=== PATIENT | female | born 1995 | race Caucasian/White ===

== ENCOUNTER → 2017-05-01 | Outpatient (CLI) | payer BC, OTHER ==
--- NOTE | 2017-05-01 09:19 | US ---
EXAMINATION TYPE: US abdomen limited DATE OF EXAM: 05/01/2017 COMPARISON: NONE CLINICAL HISTORY: R10.10 UPPER ABD PAIN. EXAM MEASUREMENTS: Liver Length: 14.5 cm Gallbladder Wall: 0.2 cm CBD: 0.3 cm Right Kidney: 11.1 x 4.8 x 5.9 cm Pancreas: Obscured by bowel gas Liver: There is an overall homogeneous hepatic echotexture with no hepatic lesions visualized. Gallbladder: No stones seen Evidence for sonographic Torres's sign: no CBD: wnl Right Kidney: No hydronephrosis or masses seen IMPRESSION: No sonographic evidence of cholelithiasis or cholecystitis. Unremarkable abdominal ultras ound.
--- NOTE | 2017-05-01 09:38 | US ---
EXAMINATION TYPE: US pelvic complete DATE OF EXAM: 05/01/2017 COMPARISON: US 2016 CLINICAL HISTORY: R10.10 UPPER ABD PAIN. Patient stated doctor wanted to assess for as vielka ent has irregular menses, but took home test 2 weeks ago and results were negative; ; C Section; prior ovarian cyst; IUD was removed 2015 TECHNIQUE: Transabdominal (TA) Date of LMP: EXAM MEASUREMENTS: Uterus: 9.5 x 5.1 x 3.3 cm Endometrial Stripe: 0.6 cm Right Ovary: 3.3 x 2.9 x 2.1 cm Left Ovary: 2.6 x 2.5 x 1.7 cm 1. Uterus: Anteverted 2. Endometrium: unable to correlate thickness with DAY 55 LMP 3. Right Ovary: multiple small follicles 4. Left Ovary: multiple small follicles 5. Bilateral Adnexa: wnl 6. Posterior cul-de-sac: wnl IMPRESSION: No current evidence of intrauterine . Correlate with serum beta-hCG. Unremarkabl e pelvic ultrasound.
--- NOTE | 2017-05-01 11:03 | US ---
EXAMINATION TYPE: US abdomen complete DATE OF EXAM: 05/01/2017 COMPARISON: NONE CLINICAL HISTORY: upper abdomal pain. EXAM MEASUREMENTS: Liver Length: 14.5 cm Gallbladder Wall: 0.2 cm CBD: 0.3 cm Spleen: 11.8 cm Right Kidney: 11.1 x 4.8 x 5.9 cm Left Kidney: 11.8 x 4.7 x 5.2 cm The liver is homogenous. The intrahepatic portion of the IVC and proximal abdominal aorta are within normal limits. There is no evidence of cholelithiasis. Common bile duct is unremarkable. The visu alized portions of the pancreas are homogenous. The spleen is unremarkable. Kidneys are symmetric a nd free of hydronephrosis. No renal lesions are seen. IMPRESSION: Unremarkable abdominal ultrasound.
== END | disposition home or self-care (01) ==
LOC: RADUSWWP 08:12
PROVIDERS: ATTEND Family Medicine
DX: R10.13 Epigastric pain (principal); R10.10 Upper abdominal pain, unspecified
CPT/HCPCS: 76700; 76705; 76856

== ENCOUNTER → 2018-05-03 | Outpatient (CLI) | payer OTHER ==
--- NOTE | 2018-05-03 13:14 | US ---
EXAMINATION TYPE: US gallbladder DATE OF EXAM: 05/03/2018 COMPARISON: US abdomen 05/01/2017, CLINICAL HISTORY: R10.11 Right upper quadrant pain. EXAM MEASUREMENTS: Liver Length: 14.0 cm Gallbladder Wall: 0.1 cm CBD: 0.3 cm Right Kidney: 11.2 x 4.5 x 4.3 cm Pancreas: Obscured by bowel gas Liver: wnl Gallbladder: No stones seen Evidence for sonographic Torres's sign: No CBD: wnl Right Kidney: No hydronephrosis or masses seen IMPRESSION: 1. No distinct abnormality appreciated.
[2018-05-03 13:47] LABS: Albumin 4.5 g/dL (3.5-5.0); Bilirubin, Delta 0.2 mg/dL (0.0-0.2); Bilirubin,Unconjugated 0.4 mg/dL (0.0-1.1); Total Bilirubin 0.6 mg/dL (0.2-1.3); Total Protein 7.2 g/dL (6.3-8.2)
[2018-05-03 13:53] LABS: Basophils % (A) 0 %; Eosinophils % (A) 0 %; HCT 44.8 % (34.0-46.0); HGB 15.1 gm/dL (11.4-16.0); Lymphocytes % (A) 11 %; MCH 32.1 pg (25.0-35.0); MCHC 33.8 g/dL (31.0-37.0); MCV 94.9 fL (80.0-100.0); Mean Platelet Volume 7.2; Monocytes # (A) 0.3 k/uL (0-1.0); Monocytes % (A) 4 %; Neutrophils % (A) 84 %; Platelet Count 268 k/uL (150-450); RBC 4.72 m/uL (3.80-5.40); RDW 11.9 % (11.5-15.5); WBC 8.4 k/uL (3.8-10.6)
== END | disposition home or self-care (01) ==
LOC: RADUSWWP 12:11
PROVIDERS: ATTEND Family Medicine
DX: R10.11 Right upper quadrant pain (principal)
CPT/HCPCS: 36415; 76705; 80076; 82150; 83690; 85025

== ENCOUNTER → 2018-05-18 | Outpatient (CLI) | payer BC, OTHER ==
--- NOTE | 2018-05-18 15:27 | NM ---
Nuclear medicine hepatobiliary scan. HISTORY: Pain. DOSAGE: The patient received 8 ounces of ensure plus and 5.1 mCi of Technetium 99m Choletec. FINDINGS: There is normal hepatic extraction. The gallbladder is seen by 20 minutes. There is bilia ry to bowel clearance by 30 minutes. Ejection fraction is 60%. IMPRESSION: 1. Normal hepatobiliary exam
== END | disposition home or self-care (01) ==
LOC: RADNMMAIN 13:08
PROVIDERS: ATTEND Family Medicine
DX: R10.10 Upper abdominal pain, unspecified (principal)
CPT/HCPCS: 78226; A9537

== ENCOUNTER 2018-11-06 12:04 | Emergency (ER) | payer BC, OTHER ==
[2018-11-06 12:16] VITALS: RESP 18
[2018-11-06] MEDS ORDERED: SODIUM CHLORIDE 0.9% 1,000 ML IV STA (12:49)
[2018-11-06] MEDS ORDERED: ACETAMINOPHEN TAB 500 MG TAB PO STA (12:50)
--- NOTE | 2018-11-06 12:52 | ED ---
General Adult HPI - General Chief complaint: Syncope Stated complaint: Fell hit head Time Seen by Provider: 11/06/18 12:28 Source: patient, RN notes reviewed Mode of arrival: ambulatory Limitations: no limitations - History of Present Illness Initial comments: Patient is a pleasant 23-year-old female presenting to the emergency department following syncopal episode. Patient has not felt well for the past couple of days. Patient has had fatigue and myalgias. Patient has had cough and rhinorrhea. Family member was recently diagnosed with influenza. Symptoms started 2 days ago. While in the shower today patient believes she may have passed out for a second. Patient did follow-up and strike her head. No confusion. No neck or back pain. Patient does have cough with mild sensation of difficulty breathing. No abdominal pain. - Related Data Home Medications Medication Instructions Recorded Confirmed Control Pill 1 tab PO HS 07/11/15 07/13/15 Previous Rx's Medication Instructions Recorded Hydrocodone/Acetaminophen [[place] 1 each PO Q6HR PRN #30 tab 07/13/15 5-325] Allergies Allergy/AdvReac Type Severity Reaction Status Date / Time morphine AdvReac Unknown Itching Verified 11/06/18 12:11 Review of Systems ROS Statement: Those systems with pertinent positive or pertinent negative responses have been documented in the HPI. ROS Other: All systems not noted in ROS Statement are negative. Constitutional: Reports: fever, chills, weakness Eyes: Denies: eye pain ENT: Denies: ear pain Respiratory: Reports: as per HPI, cough Cardiovascular: Denies: palpitations Endocrine: Reports: fatigue Gastrointestinal: Denies: abdominal pain Genitourinary: Denies: dysuria Musculoskeletal: Denies: back pain Skin: Denies: rash Neurological: Denies: confusion Past Medical History Past Medical History: No Reported History Additional Past Medical History / Comment(s): premature History of Any Multi-Drug Resistant Organisms: None Reported Past Surgical History: No Surgical Hx Reported, Section, Orthopedic Surgery Additional Past Surgical History / Comment(s): L knee Additional Past Anesthesia/Blood Transfusion Reaction / Comment(s): no family history of problems Past Psychological History: No Psychological Hx Reported Smoking Status: Never smoker Past Alcohol Use History: None Reported Past Drug Use History: None Reported General Exam Limitations: no limitations General appearance: alert, in no apparent distress Head exam: Present: other (Posterior scalp abrasion/laceration) Eye exam: Present: normal appearance, PERRL, EOMI. Absent: nystagmus ENT exam: Present: normal oropharynx Neck exam: Present: normal inspection. Absent: tenderness, meningismus Respiratory exam: Present: normal lung sounds bilaterally. Absent: chest wall tenderness Cardiovascular Exam: Present: regular rate, normal rhythm GI/Abdominal exam: Present: soft. Absent: tenderness Extremities exam: Present: normal inspection, full ROM. Absent: tenderness, pedal edema, calf tenderness Neurological exam: Present: alert, oriented X3, CN II-XII intact. Absent: motor sensory deficit Expanded Neurological exam: Present: protecting the airway Speech: Present: fluid speech Cranial nerves: EOM's Intact: Normal Motor strength exam: RUE: 5, LUE: 5, RLE: 5, LLE: 5 Eye Response: (4) open spontaneously Motor Response: (6) obeys commands Verbal Response: (5) oriented Psychiatric exam: Present: normal affect, normal mood Skin exam: Present: normal color Course Vital Signs 11/06/18 11/06/18 11/06/18 12:11 12:33 13:46 Temperature 100.6 F H 102.2 F H 101.9 F H Pulse Rate 103 H 95 Respiratory 18 18 Rate Blood Pressure 98/63 118/73 O2 Sat by Pulse 96 98 Oximetry 11/06/18 14:20 Temperature 100.4 F H Pulse Rate Respiratory Rate Blood Pressure O2 Sat by Pulse Oximetry EKG Findings - EKG Comments: EKG Findings:: Normal sinus rhythm at 97. W[place] 154. QRS 80. QT 306. QTc 388. Normal axis. Normal QRS. No acute ST change. Medical Decision Making - Medical Decision Making Patient reevaluated. Scalp further evaluated and appears more of an abrasion than laceration. Patient is not felt to need martin. Patient and family are updated on results and need for follow-up. Onset of symptoms has been approximately 50 hours now. Tamiflu is felt to be limited benefit and patient is in agreement not to have prescription. - Lab Data Result diagrams: 11/06/18 12:52 11/06/18 12:52 Lab Results 11/06/18 11/06/18 11/06/18 Range/Units 12:52 12:52 12:52 WBC 3.6 L (3.8-10.6) k/uL RBC 4.87 (3.80-5.40) m/uL Hgb 15.3 (11.4-16.0) gm/dL Hct 46.5 H (34.0-46.0) % MCV 95.3 (80.0-100.0) fL MCH 31.5 (25.0-35.0) pg MCHC 33.0 (31.0-37.0) g/dL RDW 12.0 (11.5-15.5) % Plt Count 157 (150-450) k/uL Neutrophils % 82 % Lymphocytes % 8 % Monocytes % 7 % Eosinophils % 1 % Basophils % 1 % Neutrophils # 3.0 (1.3-7.7) k/uL Lymphocytes # 0.3 L (1.0-4.8) k/uL Monocytes # 0.3 (0-1.0) k/uL Eosinophils # 0.0 (0-0.7) k/uL Basophils # 0.0 (0-0.2) k/uL PT (9.0-12.0) sec INR (<1.2) APTT (22.0-30.0) sec D-Dimer (<0.60) mg/L FEU Sodium 139 (137-145) mmol/L Potassium 4.5 (3.5-5.1) mmol/L Chloride 106 (98-107) mmol/L Carbon Dioxide 22 (22-30) mmol/L Anion Gap 11 mmol/L BUN 9 (7-17) mg/dL Creatinine 0.89 (0.52-1.04) mg/dL Est GFR (CKD-EPI)AfAm >90 (>60 ml/min/1.73 sqM) Est GFR (CKD-EPI)NonAf >90 (>60 ml/min/1.73 sqM) Glucose 94 (74-99) mg/dL Calcium 9.3 (8.4-10.2) mg/dL Magnesium 1.7 (1.6-2.3) mg/dL Total Bilirubin 0.5 (0.2-1.3) mg/dL AST 22 (14-36) U/L ALT 32 (9-52) U/L Alkaline Phosphatase 66 (38-126) U/L Creatine Kinase 62 (30-135) U/L Troponin I <0.012 (0.000-0.034) ng/mL Total Protein 7.6 (6.3-8.2) g/dL Albumin 4.6 (3.5-5.0) g/dL Urine Color Urine Appearance (Clear) Urine pH (5.0-8.0) Ur Specific [place] (1.001-1.035) Urine Protein (Negative) Urine Glucose (UA) (Negative) Urine Ketones (Negative) Urine Blood (Negative) Urine Nitrite (Negative) Urine Bilirubin (Negative) Urine Urobilinogen (<2.0) mg/dL Ur Leukocyte Esterase (Negative) Urine HCG, Qual (Not Detectd) Influenza Type A RNA (Not Detectd) Influenza Type B (PCR) (Not Detectd) 11/06/18 11/06/18 11/06/18 Range/Units 13:08 13:55 15:05 WBC (3.8-10.6) k/uL RBC (3.80-5.40) m/uL Hgb (11.4-16.0) gm/dL Hct (34.0-46.0) % MCV (80.0-100.0) fL MCH (25.0-35.0) pg MCHC (31.0-37.0) g/dL RDW (11.5-15.5) % Plt Count (150-450) k/uL Neutrophils % % Lymphocytes % % Monocytes % % Eosinophils % % Basophils % % Neutrophils # (1.3-7.7) k/uL Lymphocytes # (1.0-4.8) k/uL Monocytes # (0-1.0) k/uL Eosinophils # (0-0.7) k/uL Basophils # (0-0.2) k/uL PT 10.8 (9.0-12.0) sec INR 1.0 (<1.2) APTT 28.4 (22.0-30.0) sec D-Dimer 0.26 (<0.60) mg/L FEU Sodium (137-145) mmol/L Potassium (3.5-5.1) mmol/L Chloride (98-107) mmol/L Carbon Dioxide (22-30) mmol/L Anion Gap mmol/L BUN (7-17) mg/dL Creatinine (0.52-1.04) mg/dL Est GFR (CKD-EPI)AfAm (>60 ml/min/1.73 sqM) Est GFR (CKD-EPI)NonAf (>60 ml/min/1.73 sqM) Glucose (74-99) mg/dL Calcium (8.4-10.2) mg/dL Magnesium (1.6-2.3) mg/dL Total Bilirubin (0.2-1.3) mg/dL AST (14-36) U/L ALT (9-52) U/L Alkaline Phosphatase (38-126) U/L Creatine Kinase (30-135) U/L Troponin I (0.000-0.034) ng/mL Total Protein (6.3-8.2) g/dL Albumin (3.5-5.0) g/dL Urine Color Urine Appearance (Clear) Urine pH (5.0-8.0) Ur Specific [place] (1.001-1.035) Urine Protein (Negative) Urine Glucose (UA) (Negative) Urine Ketones (Negative) Urine Blood (Negative) Urine Nitrite (Negative) Urine Bilirubin (Negative) Urine Urobilinogen (<2.0) mg/dL Ur Leukocyte Esterase (Negative) Urine HCG, Qual Not Detected (Not Detectd) Influenza Type A RNA Detected H (Not Detectd) Influenza Type B (PCR) Not Detected (Not Detectd) 11/06/18 Range/Units 15:05 WBC (3.8-10.6) k/uL RBC (3.80-5.40) m/uL Hgb (11.4-16.0) gm/dL Hct (34.0-46.0) % MCV (80.0-100.0) fL MCH (25.0-35.0) pg MCHC (31.0-37.0) g/dL RDW (11.5-15.5) % Plt Count (150-450) k/uL Neutrophils % % Lymphocytes % % Monocytes % % Eosinophils % % Basophils % % Neutrophils # (1.3-7.7) k/uL Lymphocytes # (1.0-4.8) k/uL Monocytes # (0-1.0) k/uL Eosinophils # (0-0.7) k/uL Basophils # (0-0.2) k/uL PT (9.0-12.0) sec INR (<1.2) APTT (22.0-30.0) sec D-Dimer (<0.60) mg/L FEU Sodium (137-145) mmol/L Potassium (3.5-5.1) mmol/L Chloride (98-107) mmol/L Carbon Dioxide (22-30) mmol/L Anion Gap mmol/L BUN (7-17) mg/dL Creatinine (0.52-1.04) mg/dL Est GFR (CKD-EPI)AfAm (>60 ml/min/1.73 sqM) Est GFR (CKD-EPI)NonAf (>60 ml/min/1.73 sqM) Glucose (74-99) mg/dL Calcium (8.4-10.2) mg/dL Magnesium (1.6-2.3) mg/dL Total Bilirubin (0.2-1.3) mg/dL AST (14-36) U/L ALT (9-52) U/L Alkaline Phosphatase (38-126) U/L Creatine Kinase (30-135) U/L Troponin I (0.000-0.034) ng/mL Total Protein (6.3-8.2) g/dL Albumin (3.5-5.0) g/dL Urine Color Yellow Urine Appearance Clear (Clear) Urine pH 6.5 (5.0-8.0) Ur Specific [place] 1.007 (1.001-1.035) Urine Protein Negative (Negative) Urine Glucose (UA) Negative (Negative) Urine Ketones Trace H (Negative) Urine Blood Negative (Negative) Urine Nitrite Negative (Negative) Urine Bilirubin Negative (Negative) Urine Urobilinogen <2.0 (<2.0) mg/dL Ur Leukocyte Esterase Negative (Negative) Urine HCG, Qual (Not Detectd) Influenza Type A RNA (Not Detectd) Influenza Type B (PCR) (Not Detectd) - Radiology Data Radiology results: report reviewed (Computed tomography scan of the brain does not reveal acute abnormality), image reviewed (Chest x-ray shows no acute process) Disposition Clinical Impression: Influenza, Syncope Disposition: HOME SELF-CARE Condition: Stable Instructions (If sedation given, give patient instructions): Syncope (ED), Influenza (ED) Additional Instructions: Please follow-up with primary care physician in the next couple days for recheck. Return for passing out, chest pain, difficulty breathing, worsening or changing symptoms or other concerns. Is patient prescribed a controlled substance at d/c from ED?: No Referrals: Yevgeniy Mohamud Jr, DO [Primary Care Provider] - 1-2 days Time of Disposition: 15:24
[2018-11-06 13:16] LABS: Basophils % (A) 1 %; Eosinophils % (A) 1 %; HCT 46.5 % (34.0-46.0); HGB 15.3 gm/dL (11.4-16.0); Lymphocytes # (A) 0.3 k/uL (1.0-4.8); Lymphocytes % (A) 8 %; MCH 31.5 pg (25.0-35.0); MCV 95.3 fL (80.0-100.0); Mean Platelet Volume 7.1; Monocytes # (A) 0.3 k/uL (0-1.0); Monocytes % (A) 7 %; Neutrophils % (A) 82 %; Platelet Count 157 k/uL (150-450); RBC 4.87 m/uL (3.80-5.40); WBC 3.6 k/uL (3.8-10.6)
[2018-11-06 13:19] LABS: ALT 32 U/L (9-52); AST 22 U/L (14-36); Albumin 4.6 g/dL (3.5-5.0); Alkaline Phosphatase 66 U/L (38-126); Anion Gap 11 mmol/L; Blood Urea Nitrogen 9 mg/dL (7-17); Calcium 9.3 mg/dL (8.4-10.2); Carbon Dioxide 22 mmol/L (22-30); Chloride 106 mmol/L (98-107); Creatine Kinase 62 U/L (30-135); Glucose 94 mg/dL (74-99); Magnesium 1.7 mg/dL (1.6-2.3); Potassium 4.5 mmol/L (3.5-5.1); Sodium 139 mmol/L (137-145); Total Bilirubin 0.5 mg/dL (0.2-1.3); Total Protein 7.6 g/dL (6.3-8.2)
--- NOTE | 2018-11-06 14:02 | XR ---
EXAMINATION TYPE: XR chest 2V DATE OF EXAM: 11/06/2018 COMPARISON: NONE HISTORY: Syncope and weakness. TECHNIQUE: Frontal and lateral views of the chest are obtained. FINDINGS: Overlying EKG leads are seen. There is no focal air space opacity, pleural effusion, or pne umothorax seen. The cardiac silhouette size is within normal limits. The osseous structures are in tact. IMPRESSION: No acute cardiopulmonary process.
--- NOTE | 2018-11-06 14:03 | CT ---
EXAMINATION TYPE: CT brain wo con DATE OF EXAM: 11/06/2018 COMPARISON: None. HISTORY: Syncope and weakness. CT DLP: 1040.4. mGycm. Automated Exposure Control for Dose Reduction was Utilized. TECHNIQUE: CT scan of the head is performed without contrast. FINDINGS: There is no acute intracranial hemorrhage, mass effect, or midline shift identified. The ventricles and sulci are within normal limits in size. Caro-white matter differentiation is preserve d. Tiny air-fluid level right maxillary sinus is partially imaged otherwise visualized paranasal sinu ses are clear. The calvarium is intact. IMPRESSION: No acute intracranial hemorrhage or midline shift is seen. Possible incidental acute rig ht maxillary sinus disease, correlate clinically.
[2018-11-06 14:21] LABS: D-Dimer 0.26 mg/L FEU (<0.60); Partial Thromboplastin Time 28.4 sec (22.0-30.0); Prothrombin Time 10.8 sec (9.0-12.0)
[2018-11-06 15:43] LABS: Appearance,Urine Clear (Clear); Bilirubin,Urine Negative (Negative); Blood,Urine Negative (Negative); Color,Urine Yellow; Glucose,Urine (UA) Negative (Negative); Ketones,Urine Trace (Negative); Leukocyte Esterase,Urine Negative (Negative); Nitrite,Urine Negative (Negative); PH, Urine 6.5 (5.0-8.0); Protein,Urine Negative (Negative); Specific Gravity,Urine 1.007 (1.001-1.035); Urobilinogen,Urine <2.0 mg/dL (<2.0)
[2018-11-06 16:26] VITALS: BP 110/63; PULSE 100; TEMP 100.5
== END 2018-11-06 16:00 | disposition home or self-care (01) ==
LOC: EC 12:04
DX: J11.1 Influenza due to unidentified influenza virus with other respiratory manifestations (principal); R55 Syncope and collapse; S00.01XA Abrasion of scalp, initial encounter; Z88.5 Allergy status to narcotic agent; Z79.3 Long term (current) use of hormonal contraceptives; W22.8XXA Striking against or struck by other objects, initial encounter; Y93.89 Activity, other specified; Y92.009 Unspecified place in unspecified non-institutional (private) residence as the place of occurrence of the external cause
CPT/HCPCS: 36415; 70450; 71046; 80053; 81003; 81025; 82550; 83735; 84484; 85025; 85379; 85610; 85730; 87502; 93005; 96360; 99284

== ENCOUNTER 2021-12-27 13:16 | Emergency (ER) | payer OTHER ==
[2021-12-27 13:52] VITALS: TEMP 98.9
[2021-12-27] MEDS ORDERED: IPRATROPIUM-ALBUTEROL 3 ML NEB INHALATION STA ×2 (15:09→15:55)
[2021-12-27] MEDS ORDERED: methylPREDNISolone SOD SUCCI 125 MG/2 ML VIAL IV STA (15:09)
--- NOTE | 2021-12-27 15:27 | XR ---
EXAMINATION TYPE: XR chest 2V DATE OF EXAM: 12/27/2021 COMPARISON: 11/06/2018 INDICATION: Difficulty breathing short of breath cough TECHNIQUE: Single frontal view of the chest is obtained. FINDINGS: The heart size is normal. The pulmonary vasculature is normal. The lungs are clear. IMPRESSION: 1. No acute pulmonary process.
[2021-12-27 15:34] VITALS: RESP 18
[2021-12-27 16:24] LABS: Basophils # (A) 0.1 k/uL (0-0.2); Basophils % (A) 1 %; Eosinophils # (A) 0.4 k/uL (0-0.7); Eosinophils % (A) 5 %; HCT 51.4 % (34.0-46.0); HGB 17.1 gm/dL (11.4-16.0); Lymphocytes # (A) 0.5 k/uL (1.0-4.8); Lymphocytes % (A) 6 %; MCH 32.2 pg (25.0-35.0); MCHC 33.3 g/dL (31.0-37.0); MCV 96.8 fL (80.0-100.0); Mean Platelet Volume 7.3; Monocytes # (A) 0.3 k/uL (0-1.0); Monocytes % (A) 3 %; Neutrophils # (A) 7.7 k/uL (1.3-7.7); Neutrophils % (A) 85 %; Platelet Count 255 k/uL (150-450); RBC 5.32 m/uL (3.80-5.40); RDW 11.9 % (11.5-15.5); WBC 9.1 k/uL (3.8-10.6)
[2021-12-27 16:43] LABS: ALT 20 U/L (4-34); AST 23 U/L (14-36); African American GFR (CKD) >90 (>60 ml/min/1.73 sqM); Albumin 4.7 g/dL (3.5-5.0); Alkaline Phosphatase 84 U/L (38-126); Anion Gap 12 mmol/L; Blood Urea Nitrogen 8 mg/dL (7-17); Calcium 9.3 mg/dL (8.4-10.2); Carbon Dioxide 21 mmol/L (22-30); Chloride 107 mmol/L (98-107); Glucose 90 mg/dL (74-99); Non-African American GFR(CKD) >90 (>60 ml/min/1.73 sqM); Potassium 3.8 mmol/L (3.5-5.1); Sodium 140 mmol/L (137-145); Total Bilirubin 0.6 mg/dL (0.2-1.3); Total Protein 8.2 g/dL (6.3-8.2)
[2021-12-27] MEDS ORDERED: FLUTICASONE 50MCG/SPRAY NASAL 16GM EA NOSTRIL PRN (17:31)
--- NOTE | 2021-12-27 17:33 | ED ---
SOB HPI - General Chief Complaint: Shortness of Breath Stated Complaint: Asthma/SOB Time Seen by Provider: 12/27/21 14:58 Source: patient Mode of arrival: ambulatory Limitations: no limitations - History of Present Illness Initial Comments: Patient is a 26-year-old female with a past medical history of asthma who presents to the emergency department with chief complaint of shortness of breath and nasal congestion. Patient states she has been fighting bronchitis for a couple of weeks now and this past Thursday on 12/24/21 patient developed nasal congestion. Patient states the shortness of breath developed last night. Patient also has a dry cough. She used her alberuterol inhaler and nebulizer last night and today with no relief. She states she has not had an asthma exacerbation several years. She does mention that earlier this week there was c oncern for mold in one of her webb at home during home remodeling. She states she saw her primary care provider today who gave her a steroid shot as well as an antibiotic shot which did not help her symptoms. She states she was tested for the flu and COVID-19 which were negative. She was not sent home with any medications. Patient has no other concerns this time including fever, chills, headache, sore throat, chest pain, abdominal pain, nausea, and vomiting. - Related Data Home Medications Medication Instructions Recorded Confirmed Control Pill 1 tab PO HS 07/11/15 07/13/15 Previous Rx's Medication Instructions Recorded Hydrocodone/Acetaminophen [[place] 1 each PO Q6HR PRN #30 tab 07/13/15 5-325] Fluticasone Nasal [place] [Flonase 2 spray EA NOSTRIL DAILY #16 gm 12/27/21 Nasal [place]] Ipratropium-Albuterol Nebulize 3 ml INHALATION Q6HR #90 ml 12/27/21 [Duoneb 0.5 mg-3 mg/3 ml Soln] predniSONE 50 mg PO DAILY #5 tab 12/27/21 Allergies Allergy/AdvReac Type Severity Reaction Status Date / Time morphine AdvReac Unknown Itching Verified 12/27/21 13:52 Review of Systems ROS Statement: Those systems with pertinent positive or pertinent negative responses have been documented in the HPI. ROS Other: All systems not noted in ROS Statement are negative. Past Medical History Past Medical History: Asthma Additional Past Medical History / Comment(s): premature History of Any Multi-Drug Resistant Organisms: None Reported Past Surgical History: Section, Orthopedic Surgery Additional Past Surgical History / Comment(s): L knee Additional Past Anesthesia/Blood Transfusion Reaction / Comment(s): no family history of problems Past Psychological History: No Psychological Hx Reported Smoking Status: Never smoker Past Alcohol Use History: None Reported Past Drug Use History: Marijuana General Exam Limitations: no limitations General appearance: alert, in no apparent distress Head exam: Present: atraumatic, normocephalic, normal inspection Eye exam: Present: normal appearance, PERRL, EOMI. Absent: scleral icterus, conjunctival injection, periorbital swelling ENT exam: Present: normal oropharynx Neck exam: Present: normal inspection, full ROM Respiratory exam: Present: rhonchi (Throughout) Cardiovascular Exam: Present: regular rate, normal rhythm, normal heart sounds. Absent: systolic murmur, diastolic murmur, rubs, gallop, clicks GI/Abdominal exam: Present: soft, normal bowel sounds. Absent: distended, tenderness, guarding, rebound, rigid Back exam: Present: normal inspection Neurological exam: Present: alert, oriented X3, CN II-XII intact Psychiatric exam: Present: normal affect, normal mood Skin exam: Present: warm, dry, intact, normal color. Absent: rash Course Vital Signs 12/27/21 12/27/21 12/27/21 13:49 15:10 15:27 Temperature 98.9 F Pulse Rate 100 100 Respiratory 24 20 20 Rate Blood Pressure 118/83 O2 Sat by Pulse 95 Oximetry 12/27/21 12/27/21 12/27/21 15:34 17:01 17:08 Temperature Pulse Rate 100 92 90 Respiratory 18 18 18 Rate Blood Pressure O2 Sat by Pulse Oximetry 12/27/21 17:44 Temperature Pulse Rate 84 Respiratory 18 Rate Blood Pressure 116/82 O2 Sat by Pulse 97 Oximetry Medical Decision Making - Medical Decision Making This is a 26-year-old female who presents with shortness of breath, congestion, and cough. Thorough history and examination were performed. Pulse ox is 97% room air. Patient does have history of asthma. Patient is well-appearing and in no apparent distress however she has trouble talking to me without coughing. There are rhonchi heard throughout. Due to patient's long course of illness laboratory studies were obtained which are relatively unremarkable. White count is normal at 9.1. Chest x-ray is negative for acute process. Because patient reports no improvement of shortness of breath with albuterol nebulizer, DuoNeb nebulizer was ordered. Patient reports significant improvement in shortness of breath and cough after 2 treatments. Based on history, presentation, and response to DuoNeb treatment, other pulmonary etiologies are unlikely. Patient will be discharged with DuoNeb for her nebulizer and prednisone for asthma exacerbation. I will also prescribe her fluticasone for nasal congestion. She is encouraged to use Mucinex [id number] as well. Patient provided education on asthma irritants. Patient informed that her asthma may be exacerbating due to mole in the wall. She is encouraged to follow up with her primary care provider. Return parameters discussed. Patient verbalizes understanding and is agreeable to this plan. Dr. De is my attending. - Lab Data Result diagrams: 12/27/21 16:12 12/27/21 16:12 Lab Results 12/27/21 12/27/21 Range/Units 16:12 16:12 WBC 9.1 (3.8-10.6) k/uL RBC 5.32 (3.80-5.40) m/uL Hgb 17.1 H (11.4-16.0) gm/dL Hct 51.4 H (34.0-46.0) % MCV 96.8 (80.0-100.0) fL MCH 32.2 (25.0-35.0) pg MCHC 33.3 (31.0-37.0) g/dL RDW 11.9 (11.5-15.5) % Plt Count 255 (150-450) k/uL MPV 7.3 Neutrophils % 85 % Lymphocytes % 6 % Monocytes % 3 % Eosinophils % 5 % Basophils % 1 % Neutrophils # 7.7 (1.3-7.7) k/uL Lymphocytes # 0.5 L (1.0-4.8) k/uL Monocytes # 0.3 (0-1.0) k/uL Eosinophils # 0.4 (0-0.7) k/uL Basophils # 0.1 (0-0.2) k/uL Sodium 140 (137-145) mmol/L Potassium 3.8 (3.5-5.1) mmol/L Chloride 107 (98-107) mmol/L Carbon Dioxide 21 L (22-30) mmol/L Anion Gap 12 mmol/L BUN 8 (7-17) mg/dL Creatinine 0.77 (0.52-1.04) mg/dL Est GFR (CKD-EPI)AfAm >90 (>60 ml/min/1.73 sqM) Est GFR (CKD-EPI)NonAf >90 (>60 ml/min/1.73 sqM) Glucose 90 (74-99) mg/dL Calcium 9.3 (8.4-10.2) mg/dL Total Bilirubin 0.6 (0.2-1.3) mg/dL AST 23 (14-36) U/L ALT 20 (4-34) U/L Alkaline Phosphatase 84 (38-126) U/L Total Protein 8.2 (6.3-8.2) g/dL Albumin 4.7 (3.5-5.0) g/dL Disposition Clinical Impression: Shortness of breath, Asthma exacerbation Disposition: HOME SELF-CARE Condition: Good Instructions (If sedation given, give patient instructions): Asthma (ED) Additional Instructions: Please take medication as directed. You may take Mucinex [id number] for congestion symptoms. Please follow-up with primary care provider in one to 2 days. Return to emergency department if you experience new, concerning, or worsening symptoms. Prescriptions: Ipratropium-Albuterol Nebulize [Duoneb 0.5 mg-3 mg/3 ml Soln] 3 ml INHALATION Q6HR #90 ml Fluticasone Nasal [place] [Flonase Nasal [place]] 2 spray EA NOSTRIL DAILY #16 gm predniSONE 50 mg PO DAILY #5 tab Is patient prescribed a controlled substance at d/c from ED?: No Referrals: Yevgeniy Mohamud Jr, [Primary Care Provider] - 1-2 days Time of Disposition: 17:32
[2021-12-27 20:27] VITALS: BP 116/82; PULSE 84
== END 2021-12-27 17:44 | disposition home or self-care (01) ==
LOC: EC 13:16
DX: J45.901 Unspecified asthma with (acute) exacerbation (principal); Z88.5 Allergy status to narcotic agent; F12.90 Cannabis use, unspecified, uncomplicated
CPT/HCPCS: 36415; 71046; 80053; 85025; 94640; 99285